=== PATIENT | female | born 1975 | race African-American/Black ===

== ENCOUNTER 2018-08-29 16:06 | Inpatient (IN) ==
[2018-08-29] MEDS ORDERED: Bisacodyl 10 MG Supp RECTAL PRN (17:52)
[2018-08-29] MEDS ORDERED: Acetaminophen 325 MG Tablet PO PRN (17:52)
[2018-08-29] MEDS ORDERED: Sodium Chlor 0.9% Inj 250 ML IV.SIG SCH (18:00)
[2018-08-29] MEDS: Ferrous Sulfate 325 MG Tablet PO SCH (21:57)
--- NOTE | 2018-08-29 23:14 | P.HPIM ---
History of Present Illness Service: [facility] Primary Care Physician: No Primary Care Physician Chief Complaint: vaginal bleeding History of Present Illness: 42 y/o female with no medical history presented to the ER with complaints of fatigue and vaginal bleeding. Patient states she has been having vaginal bleeding for the past 3 weeks, saturating 1 pad every hour. She states she hasn't had a menstrual cycle for 2 months prior to this one. She states she has associated fatigue and dizziness. Denies any chest pain, loc, sob , abdominal pain or dysuria. Inpatient Certification Inpatient Certification: I certify that the inpatient services were ordered in accordance with Medicare regulations governing the order. This includes certification that hospital inpatient services are reasonable and necessary and in the case of services not specified as inpatient-only under 42 CFR 419.22(n), that they are appropriately provided as inpatient services in accordance to with the 2-midnight benchmark under 43 CFR 412.3(e) Estimated Total Length of Stay (Days): 3 Plans for Post Hospital Care: Home Review of Systems Review of Systems: all other systems reviewed are negative [facility] Medical History Medical History No active medical problems (Acute) Surgical History Surgical History History of bilateral tubal ligation (Acute) History of section (Acute) Family History Family History Other Family history normal Social History Social History Substance History: No History of Abuse Second Hand Smoke Exposure: No Smoking Status: Never smoker How Often Do You Have a Drink Containing Alcohol: 4 or more times a week Immunization History Tetanus Immunization: >5 Years Hx Influenza Vaccine This Season: No Medications and Allergies Allergies Allergy/AdvReac Type Severity Reaction Status Date / Time No Known Allergies Allergy Uncoded 04/23/17 14:49 Home Medications Medication Instructions Recorded Confirmed Type No Known Home Medications 08/29/18 08/29/18 History Active Medications: Active Medications Acetaminophen (Tylenol) 650 mg PO Q4H PRN PRN Reason: Temp > 100.4 Al Hydroxide/Mg Hydroxide (Milk Of Magnesia Liq) 30 ml PO Q12H PRN PRN Reason: Mild Constipation Last Admin: 08/29/18 21:57 Dose: 30 ml Bisacodyl (Dulcolax Supp) 10 mg RECTAL DAILY PRN PRN Reason: SEVERE CONSITIPATION Ferrous Sulfate (Ferosul) 325 mg PO BID COUNTS INCLUDE 234 BEDS AT THE [facility] Last Admin: 08/29/18 21:57 Dose: 325 mg Sodium Chloride (Ns Inj) 250 mls @ 15 mls/hr IV.SIG ONCE COUNTS INCLUDE 234 BEDS AT THE [facility] Stop: 08/30/18 10:39 Last Admin: 08/29/18 21:57 Dose: 15 mls/hr Lactulose (Lactulose Liq) 30 ml PO DAILY PRN PRN Reason: SEVERE CONSITIPATION Ondansetron HCl (Zofran Inj) 4 mg IV.PUSH Q6H PRN PRN Reason: NAUSEA OR VOMITING Sennosides (Senokot) 17.2 mg PO Q12H PRN PRN Reason: Moderate Constipation Sodium Chloride (Ns Flush) 2 ml IV.FLUSH BID COUNTS INCLUDE 234 BEDS AT THE [facility] Last Admin: 08/29/18 21:57 Dose: 2 ml Sodium Chloride (Ns Flush) 2 ml IV.FLUSH PRN PRN PRN Reason: FLUSH AFTER USING IV ACCESS Physical Exam Vital signs: Vital Signs 08/29/18 21:12 08/29/18 22:16 08/29/18 22:33 Temperature 98.4 F 97.5 F L 98.0 F Pulse Rate 97 H 87 85 Respiratory Rate 18 16 16 Blood Pressure 121/58 L 132/69 120/68 Pulse Oximetry 100 100 100 Intake & Output 08/29/18 08/29/18 08/30/18 06:59 18:59 06:59 Intake Total 0 / 0 Balance 0 / 0 Weight 91.1 kg Intake: Intake (Blood Product) Amt 0 / 0 Rbc As-3 Leukoreduced Unit 0 / 0 [id number] Other: Weight On Admission 91.1 kg Narrative: GENERAL: Well nourished in no distress SKIN: Warm and dry. HEAD: Normocephalic. EYES: No scleral icterus. No injection or drainage. NECK: Supple, trachea midline. No JVD or lymphadenopathy. CARDIOVASCULAR: Regular rate and rhythm without murmurs, gallops, or rubs. RESPIRATORY: Breath sounds equal bilaterally. No accessory muscle use. GASTROINTESTINAL: Abdomen soft, non-tender, nondistended. MUSCULOSKELETAL: No cyanosis, or edema. Caprini VTE Risk Assessment Caprini VTE Risk Assessment: No/Low Risk (score <= 1) Caprini Risk Assessment Model: Point Value = 1 Point Value = 2 Point Value = 3 Point Value = 5 Age 41-60 Minor surgery BMI > 25 kg/m2 Swollen legs Varicose veins or History of unexplained or recurrent spontaneous Oral contraceptives or hormone replacement Sepsis (< 1 month) Serious lung disease, including pneumonia (< 1 month) Abnormal pulmonary function Acute myocardial infarction Congestive heart failure (< 1 month) History of inflammatory bowel disease Medical patient at bed rest Age 61-74 Arthroscopic surgery Major open surgery (> 45 min) Laparoscopic surgery (> 45 min) Malignancy Confined to bed (> 72 hours) Immobilizing plaster cast Central venous access Age >= 75 History of VTE Family history of VTE Factor V Leiden Prothrombin 12039P Lupus anticoagulant Anticardiolipin antibodies Elevated serum homocysteine Heparin-induced thrombocytopenia Other congenital or acquired thrombophilia Stroke (< 1 month) Elective arthroplasty Hip, pelvis, or leg fracture Acute spinal cord injury (< 1 month) Prophylaxis Regimen: Total Risk Factor Score Risk Level Prophylaxis Regimen 0-1 Low Early ambulation 2 Moderate Order ONE of the following: *Sequential Compression Device (SCD) *Heparin 5000 units SQ BID 3-4 Higher Order ONE of the following medications: *Heparin 5000 units SQ TID *Enoxaparin/Lovenox 40 mg SQ daily (WT < 150 kg, CrCl > 30 mL/min) *Enoxaparin/Lovenox 30 mg SQ daily (WT < 150 kg, CrCl > 10-29 mL/min) *Enoxaparin/Lovenox 30 mg SQ BID (WT < 150 kg, CrCl > 30 mL/min) AND/OR *Sequential Compression Device (SCD) 5 or more Highest Order ONE of the following medications: *Heparin 5000 units SQ TID (Preferred with Epidurals) *Enoxaparin/Lovenox 40 mg SQ daily (WT < 150 kg, CrCl > 30 mL/min) *Enoxaparin/Lovenox 30 mg SQ daily (WT < 150 kg, CrCl > 10-29 mL/min) *Enoxaparin/Lovenox 30 mg SQ BID (WT < 150 kg, CrCl > 30 mL/min) AND *Sequential Compression Device (SCD) Assessment and Plan Plan 42 y/o female with no medical history presented to the ER with complaints of fatigue and vaginal bleeding. Symptomatic anemia related to uterine bleeding HGB 4.3 -Transfuse 4 units of PRBCs -Labs in AM -Consult to BILINGUAL EXECUTIVE ASSISTANT -Pelvic US ordered by BILINGUAL EXECUTIVE ASSISTANT DVT prophylaxis: SCDs Code Status: FULL H&P: Quality VTE Deep Vein Thrombosis/Pulmonary Embolism Present on Admission: No
--- NOTE | 2018-08-29 23:35 | P.CONOB ---
History of Present Illness Consult date: 08/29/18 Requesting Physician: Mary Hanley Reason for Consult: Vaginal bleeding resulting in anemia Primary Care Physician: No Primary Care Physician Chief Complaint: I have had menstrual period for 3 weeks History of Present Illness: 42-year-old G 2P2 LMP times 3 weeks presents complaining of menstrual cycle times 3 weeks with shortness of breath and progressive dizziness. Patient reports prior to that she had had no menstrual cycle for several months. Her mother was menopausal in her 30s the patient had believed that she was probably entering menopause. Her last ESTHETICIAN/SPA COORDINATOR visit was approximately 4 years ago she does not reporting history of fibroid tumors or ovarian masses. Past OB history delivery x2 Past ESTHETICIAN/SPA COORDINATOR history denies STDs Past medical history denies hypertension diabetes or pre-existing anemia Allergies denies Social history denies x3 Review of Systems All other systems reviewed negative except as stated in HPI PMFSH - History History Provided By: Patient - Medical History Medical History: Medical History (Last Reviewed 08/29/18 @ 22:05 by Mary De La Garza RN) No active medical problems - Surgical History Surgical History: Surgical History (Last Reviewed 08/29/18 @ 22:05 by Mary De La Garza RN) History of bilateral tubal ligation History of section - Family History Family History: Family History (Last Updated 08/29/18 @ 22:05 by Mary De La Garza RN) Other Family history normal - Tobacco History Second Hand Smoke Exposure: No Smoking Status: Never smoker - Alcohol History How Often Do You Have a Drink Containing Alcohol: 4 or more times a week - Substance Use History Substance History: No History of Abuse - Immunization History Tetanus Immunization: >5 Years Hx Influenza Vaccine This Season: No Medications and Allergies Active Medications: Active Medications Acetaminophen (Tylenol) 650 mg PO Q4H PRN PRN Reason: Temp > 100.4 Al Hydroxide/Mg Hydroxide (Milk Of Magnesia Liq) 30 ml PO Q12H PRN PRN Reason: Mild Constipation Last Admin: 08/29/18 21:57 Dose: 30 ml Bisacodyl (Dulcolax Supp) 10 mg RECTAL DAILY PRN PRN Reason: SEVERE CONSITIPATION Ferrous Sulfate (Ferosul) 325 mg PO BID JEANCARLOS Last Admin: 08/29/18 21:57 Dose: 325 mg Sodium Chloride (Ns Inj) 250 mls @ 15 mls/hr IV.SIG ONCE JEANCARLOS Stop: 08/30/18 10:39 Last Admin: 08/29/18 21:57 Dose: 15 mls/hr Lactulose (Lactulose Liq) 30 ml PO DAILY PRN PRN Reason: SEVERE CONSITIPATION Ondansetron HCl (Zofran Inj) 4 mg IV.PUSH Q6H PRN PRN Reason: NAUSEA OR VOMITING Sennosides (Senokot) 17.2 mg PO Q12H PRN PRN Reason: Moderate Constipation Sodium Chloride (Ns Flush) 2 ml IV.FLUSH BID JEANCARLOS Last Admin: 08/29/18 21:57 Dose: 2 ml Sodium Chloride (Ns Flush) 2 ml IV.FLUSH PRN PRN PRN Reason: FLUSH AFTER USING IV ACCESS Allergies Allergy/AdvReac Type Severity Reaction Status Date / Time No Known Allergies Allergy Uncoded 04/23/17 14:49 Home Medications Medication Instructions Recorded Confirmed Type No Known Home Medications 08/29/18 08/29/18 History Exam Vital signs: Vital Signs 08/29/18 21:12 08/29/18 22:16 08/29/18 22:33 Temperature 98.4 F 97.5 F L 98.0 F Pulse Rate 97 H 87 85 Respiratory Rate 18 16 16 Blood Pressure 121/58 L 132/69 120/68 Pulse Oximetry 100 100 100 Intake & Output 08/29/18 08/29/18 08/30/18 06:59 18:59 06:59 Intake Total 0 / 0 Balance 0 / 0 Weight 91.1 kg Intake: Intake (Blood Product) Amt 0 / 0 Rbc As-3 Leukoreduced Unit 0 / 0 [id number] Other: Weight On Admission 91.1 kg - Constitutional no acute distress - Routine HEENT Exam Head: Present: normocephalic ENT: Present: mucous membranes moist - Routine Neck Exam Present: supple - Routine Chest/Breast/Axilla Exam Chest wall: Absent: tenderness - Routine Respiratory Exam Absent: accessory muscle use - Routine Abdominal Exam Present: soft. Absent: tenderness - Routine Exam External: Present: normal urethra appearance Perineum Description: Intact (Uterus palpates normal size no cervical motion tenderness no adnexal tenderness no adnexal masses Antiverted) - Routine Skin Exam Present: intact - Routine Neurological Exam Present: alert, oriented X3 Results - Labs Labs: Laboratory Results - last 24 hr 08/29/18 08/29/18 08/29/18 17:07 17:07 17:07 Blood Type O Positive Antibody Screen Negative MTS Gel Crossmatch See Detail See Detail 08/29/18 17:07 Blood Type Antibody Screen MTS Gel Crossmatch See Detail Assessment and Plan - Diagnosis (1) Dysfunctional uterine bleeding Code(s): N93.8 - Other specified abnormal uterine and vaginal bleeding Status : Acute (2) Symptomatic anemia Code(s): D64.9 - Anemia, unspecified Status: Acute - Plan Ordered pelvic ultrasound routine Ordered TSH FSH routine Once patient is hemodynamically stable patient is to follow-up outpatient family practice clinic with Dr. Maurer
[2018-08-30 08:04] VITALS: RESP 20
--- NOTE | 2018-08-30 08:51 | US ---
EXAM DATE: 08/30/2018 8:45 AM EST AGE/SEX: 42 years / Female INDICATIONS: Dysfunctional uterine bleeding. CLINICAL DATA: This is the patient's initial encounter. Patient reports that signs and symptoms have been present for 3 weeks and indicates a pain score of 0/10. MEDICAL/SURGICAL HISTORY: Anemia. Menorrhagia. section. Tubal ligation. COMPARISON: No prior exams available for comparison. MEASUREMENTS: Uterus:__11.3 x 8.9 x 5.2 cm Endometrial Stripe:__10 mm Right Ovary:__ 3.9 x 2.1 x 2.2 cm Left Ovary:__ 3.9 x 1.9 x 1.6 cm FINDINGS: Uterus: The uterus is normal in size. No focal mass is noted. The endometrial stripe is normal in th ickness and measures 10 mm. Endometrial Stripe: The endometrial stripe displays homogeneous echotexture. Right Ovary: Unremarkable. Left Ovary: Unremarkable. Fluid: No free fluid. Other: None CONCLUSION: 1. Small 1.4 cm right ovarian cyst. 2. Unremarkable uterus and left ovary. Electronically signed by: Pillo Oconnell MD Board Certified Radiologist 08/30/2018 8:49 AM EST
--- NOTE | 2018-08-30 10:25 | P.DS ---
DS: Providers Date of admission: 08/29/18 20:50 Primary care physician: No Primary Care Physician Consults: 08/29/18 17:53 Consult to Gynecology Routine Consulting Provider: Angelina Dean Reason for Consultation: Severe anemia with menorrhagia Notified:: Physician Spoke with:: Dr. Dean Date Notified:: 08/29/18 Time Notified:: 21:15 Ordering Provider: GARRY Attending physician on discharge: Margarita Haji Anticipated date of discharge: 08/30/18 Brief History from admission: 42 y/o female with no medical history presented to the ER with complaints of fatigue and vaginal bleeding. Patient states she has been having vaginal bleeding for the past 3 weeks, saturating 1 pad every hour. She states she hasn't had a menstrual cycle for 2 months prior to this one. She states she has associated fatigue and dizziness. Denies any chest pain , loc, sob, abdominal pain or dysuria. Patient update on day of discharge: Patient seen and examined. Patient received 4 units of blood. Patient states she feels well. She denies any complaints of dizziness, headache or lightheadedness. She denies any shortness of breath with ambulating around the room to and from the bathroom. She denies any chest pain. She denies any nausea, vomiting or abdominal pain. She denies any vaginal bleeding. DS: Diagnosis Discharge Diagnosis (1) Dysfunctional uterine bleeding: Status: Inactive (2) Symptomatic anemia: Status: Inactive (3) Symptomatic anemia: Status: Acute (4) Menorrhagia with irregular cycle: Status: Acute DS: Summary Patient admitted with symptomatic anemia secondary to dysfunctional uterine bleeding. Patient had a hemoglobin of 4.3. She was transfused 4 units of PRBCs and her hemoglobin improved to 9.3. She was started on oral iron supplementation. She was seen in consultation by gynecology who recommended patient to follow-up as outpatient with Dr. Maurer once hemodynamically stable. Pelvic ultrasound was obtained which revealed unremarkable uterus and left ovary and small 1.4 cm and a right ovarian cyst. Patient's menstrual bleeding stopped. Her symptoms resolved. She improved clinically. Patient had an unexpected and unforeseen recovery that did not necessitate the expected 2 midnight hospitalization. The exam, history, and the medical decision-making described in the above note were completed with the assistance of the mid-level provider. I reviewed and agree with the findings presented. I attest that I had a [id number] encounter with the patient on the same day, and personally performed and documented my assessment and findings in the medical record. Patient seen and examined. At the time of my examination, there was no further vaginal bleeding. On exam: Normal S1 and S2. No murmurs. Lungs CTA bilaterally. Abdomen is soft, non tender, ND A/P: Patient with critical anemia secondary to dysfunctional uterine bleeding. She is status post blood transfusion and doing well. She was evaluated by OB/ THORACIC SURGEON and advised to follow up outpatient. Bleeding later recurred. Patient given Premarin per OB. She is discharged on OCP per ASSOCIATE PROFESSOR OF BIBLICAL STUDIES recs. Time Spent with Patient Total time spent providing and/or coordinating discharge services: Greater than 30 minutes Status at Discharge Functional status at discharge: independent ambulation Overall status at discharge: patient is back to baseline Quality: VTE Deep Vein Thrombosis/Pulmonary Embolism Present on Admission: No Exam Narrative Exam Narrative: GENERAL: Well-developed well-nourished -D[place] female, no acute distress. Awake and alert. Appears comfortable sitting up in bed. SKIN: Warm and dry. HEENT: Atraumatic. Normocephalic. Pupils equal and round. No scleral icterus. No nasal discharge. Mucous membranes pink and moist. NECK: Trachea midline. CARDIOVASCULAR: Regular rate and rhythm. No murmur appreciated. RESPIRATORY: No accessory muscle use. Clear to auscultation. Breath sounds equal bilaterally. GASTROINTESTINAL: Abdomen soft, non-tender, nondistended. +BS x 4 quads. MUSCULOSKELETAL: Extremities without clubbing, cyanosis, or edema. No obvious deformities. NEUROLOGICAL: Awake and alert. No obvious cranial nerve deficits. Motor grossly within normal limits. Able to move all extremity spontaneously. Normal speech. PSYCHIATRIC: Appropriate mood and affect; insight and judgment normal. Results Labs on day of discharge: Labs from last 24 hours 08/29/18 08/29/18 08/29/18 17:07 17:07 17:07 Blood Type O Positive Antibody Screen Negative MTS Gel Crossmatch See Detail See Detail 08/29/18 17:07 Blood Type Antibody Screen MTS Gel Crossmatch See Detail Impressions ITS Impressions Pelvis Ultrasound 08/30/18 10:00 CONCLUSION: 1. Small 1.4 cm right ovarian cyst. 2. Unremarkable uterus and left ovary. Discharge Plan Discharge Disposition Patient Disposition: 01 Discharge Home Discharge Condition Condition: Stable Discharge Order Discharge Orders: Discharge Order (Routine); Ordered 08/30/18 Ordered By: Kaylan Gilbert Discharge Details Anticipated Discharge Date: 08/30/18 Physicians Team ED Provider: Cydney Womack Primary Care Provider: Amanda Alberts Attending Provider: Margarita Haji Other Providers: Angelina Dean Rxs /Orders / Referrals /Forms Prescriptions: New ferrous sulfate [FeroSul] 325 mg (65 mg iron) Tablet 325 mg PO BID Qty: 60 RF: 0 norethindrone-ethin estradiol 0.4-35 mg-mcg tablet See Label Instructions .ROUTE .COMPLEX Qty: 84 RF: 0 No Action No Known Home Medications RF: 0 Referrals: Primary Care Amanda Alvarez [Primary Care Provider] - See Instructions ( Please call the physician's office to book the appointment to be seen within one week.) Magaly Young MD, R1 [Physician] - See Instructions ( Please call the physician's office to book the appointment to be seen within one week.) Discharge Instructions Patient Printed Instructions: Endometriosis (DC) Additional Instructions: FOLLOWUP WITH YOUR OBGYN WITHIN ONE WEEK.Your Health Problems: Goals to Promote Your Health: * To prevent worsening of your condition * To maintain your health at the optimal level Directions to Meet Your Goals: * Take your medications as prescribed * Follow your dietary instruction * Follow activity as directed * Keep your appointments as scheduled * Take your immunizations and boosters as scheduled * If your symptoms worsen call your PCP * If no PCP go to Urgent Care or Emergency Room Smoking is dangerous to your health. Avoid second hand smoke. You may reach the 24-hour crisis hotline for domestic abuse at . Status ED Status: Admitted Patient Discharge Information Discharge Date/Time: 08/30/18 19:57
[2018-08-30 10:39] LABS: Baso # (Auto) 0.1 th/mm3 (0.0-0.2); Baso % (Auto) 0.8 % (0.0-2.0); Eos % (Auto) 0.5 % (0.0-4.0); Hematocrit 28.1 % (35.0-46.0); Hemoglobin 9.3 gm/dL (11.6-15.3); Lymph # (Auto) 2.7 th/mm3 (1.0-4.8); Lymph % (Auto) 31.1 % (9.0-44.0); Mean Corpuscular HGB Conc 33.2 % (32.0-36.0); Mean Corpuscular Hemoglobin 26.2 pg (27.0-34.0); Mean Corpuscular Volume 78.9 fL (80.0-100.0); Mean Platelet Volume 8.7 fL (7.0-11.0); Mono # (Auto) 1.2 th/mm3 (0.0-0.9); Mono % (Auto) 14.3 % (0.0-8.0); Neut # (Auto) 4.6 th/mm3 (1.8-7.7); Neut % (Auto) 53.3 % (16.0-70.0); Platelet Count 321 th/mm3 (150-450); Red Blood Count 3.56 mil/mm3 (4.00-5.30); Red Cell Distribution Width 19.3 % (11.6-17.2); White Blood Count 8.6 th/mm3 (4.0-11.0)
[2018-08-30 11:00] LABS: Anion Gap 8 meq/L (5-15); Blood Urea Nitrogen 5 mg/dL (7-18); Calcium 8.3 mg/dL (8.5-10.1); Carbon Dioxide 22.7 meq/L (21.0-32.0); Chloride 108 meq/L (98-107); Glomerular Filtration Rate Greater Than 89 mL/min (>89); Glucose,Random 99 mg/dL (74-106); Iron 256 mcg/dL (50-170); Potassium 3.9 meq/L (3.5-5.1); Sodium 139 meq/L (136-145)
[2018-08-30 11:10] LABS: % Iron Saturation 53.3 % (20-50); Thyroid Stimulating Hormone 0.982 uIU/mL (0.358-3.740); Total Iron Binding Capacity 480 mcg/dL (250-450)
[2018-08-30 13:36] VITALS: O2SAT 98
[2018-08-30] MEDS ORDERED: Estrogens Conjugated Inj 25 MG Vial IV.PUSH ONE (15:59)
--- NOTE | 2018-08-30 16:09 | P.OBGPN ---
Called to see pt as she started bleeding again. The pt states when she goes to the restroom she is having large clots and the blood runs out in to the toilet. Her pad is currently clean as she just took a shower. She states she feels fine at this time. Discussed IV estrogen and then BCP- 2 pills/day x 7 days and then 1/day x 7 days. Then start a new pack and take daily. The pt is ok with trying this. She states her mother did this at 37 y/o until she reached menopause.
[2018-08-30 17:17] VITALS: BP 137/77; PULSE 79; TEMP 98
[2018-08-30] MEDS: Ferrous Sulfate 325 MG Tablet PO SCH (19:26)
== END 2018-08-30 19:57 | disposition home or self-care (01) | DRG 812 ==
LOC: NEDDLT 20:40 → N06 20:50
PROVIDERS: ADMIT Family Medicine; ATTEND Family Medicine
DX: Z98.891 History of uterine scar from previous surgery; D50.0 Iron deficiency anemia secondary to blood loss (chronic); N92.1 Excessive and frequent menstruation with irregular cycle; Z98.51 Tubal ligation status; N83.201 Unspecified ovarian cyst, right side; N93.8 Other specified abnormal uterine and vaginal bleeding
CPT/HCPCS: 36430; 76856; 80048; 80053; 83001; 83540; 83550; 84443; 84702; 85025; 85610; 85730; 86850; 86900; 86901; 86920; 86923; 90760; 90761; 96360; 96361; 99284; 99285; J1410; J7030; J7050; P9016